=== PATIENT | male | born 1995 | race African-American/Black ===

== ENCOUNTER 2017-09-13 14:02 | Emergency (ER) | payer BC, MEDICAID, OTHER ==
[~2017-09-13] VITALS: Ht 175.3 cm; Wt 69.4 kg
[2017-09-13 14:11] VITALS: BP 113/67
== END 2017-09-13 14:27 | disposition home or self-care (01) ==
LOC: ER 14:03
DX: J06.9 Acute upper respiratory infection, unspecified (principal); F17.200 Nicotine dependence, unspecified, uncomplicated
CPT/HCPCS: A4606; Z7502; Z7610

== ENCOUNTER 2020-10-22 14:40 | Emergency (ER) | payer BC, OTHER ==
[~2020-10-22] VITALS: Ht 180.3 cm; Wt 74.4 kg
[2020-10-22 14:56] VITALS: BP 113/83
[2020-10-22] MEDS ORDERED: LIDOCAINE /MPF 1% VIAL 5 ML VIAL ONE (15:15)
[2020-10-22] MEDS ORDERED: LIDOCAINE /MPF 1% VIAL 5 ML VIAL IJ ONE (15:30)
--- NOTE | 2020-10-22 15:45 | NUR ---
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
[2020-10-22] MEDS ORDERED: IBUP-1955 PO (15:46)
[2020-10-22] MEDS ORDERED: AMOX-430 PO (15:46)
--- NOTE | 2020-10-22 15:50 | NUR ---
WOUND DRESSING DONE BY COMMUNICATIONS DEPARTMENT CHAIR.
--- NOTE | 2020-10-22 15:54 | NUR ---
Patient discharged to home in stable condition. Written and verbal after care instructions given. Patient verbalizes understanding of instruction.
== END 2020-10-22 15:55 | disposition home or self-care (01) ==
LOC: ER 14:45
DX: L03.011 Cellulitis of right finger (principal); F17.200 Nicotine dependence, unspecified, uncomplicated
CPT/HCPCS: 10060; 99283; A6403; J3490

== ENCOUNTER 2023-03-23 11:43 | Emergency (ER) | payer OTHER ==
[~2023-03-23] VITALS: Ht 180.3 cm; Wt 82.1 kg
[~2023-03-23 11:43] MED LIST: AMOX-430 PO; IBUP-1955 PO
[2023-03-23 12:22] VITALS: TEMP 98.7
[2023-03-23 13:19] LABS: BASOPHILS % (AUTO) 0.3 % (0.0-2.0); EOSINOPHILS # (AUTO) 0.1 K/uL (0.0-0.7); HEMATOCRIT 48 % (39-51); HEMOGLOBIN 16.3 g/dL (13.5-17.5); LYMPHOCYTES # (AUTO) 0.5 K/uL (0.8-4.8); LYMPHOCYTES % (AUTO) 4.7 % (20.0-44.0); MEAN CORPUSCULAR HEMOGLOBIN 32 PG (26.0-33.0); MEAN CORPUSCULAR HGB CONC 34 g/dl (31.0-36.0); MEAN CORPUSCULAR VOLUME 96 fL (80-96); MONOCYTES # (AUTO) 0.8 K/uL (0.1-1.30); NEUTROPHILS # (AUTO) 8.7 K/uL (1.8-8.9); PLATELET COUNT (AUTO) 188 K/uL (150-450); RED BLOOD CELL COUNT(AUTO) 5.03 MIL/uL (4.5-6.0); RED CELL DISTRIBUTION WIDTH 15.8 % (11.5-15.0); WHITE BLOOD COUNT (AUTO) 10.1 K/uL (4.3-11.0)
[2023-03-23] MEDS ORDERED: IOHEXOL-350 100 ML VIAL IV ONE (13:27)
[2023-03-23] MEDS ORDERED: IV NS 0.9% 250 ML IV ONE (13:27)
[2023-03-23 13:40] LABS: INR 1.03 (0.91-1.10); PARTIAL THROMBOPLASTIN TIME 26.6 SEC (24.3-34.3); PROTHROMBIN TIME 10.9 SECS (9.2-11.1)
[2023-03-23 13:50] LABS: CALCIUM, SERUM 9.9 mg/dL (8.5-10.1); CREATININE 0.9 mg/dL (0.6-1.3); POTASSIUM 3.6 mmol/L (3.5-5.1)
[2023-03-23 14:02] LABS: ALBUMIN 4.4 g/dL (3.4-5.0); BILIRUBIN,DIRECT 0.6 mg/dL (0.0-0.2); BILIRUBIN,TOTAL 1.6 mg/dL (0.2-1.0); TOTAL PROTEIN, SERUM 8.2 g/dL (6.4-8.2)
[2023-03-23] MEDS ORDERED: PANT40TA2 PO (15:36)
[2023-03-23 15:46] VITALS: BP 125/84; O2SAT 100
== END 2023-03-23 15:46 | disposition home or self-care (01) ==
LOC: ER 11:49
DX: S29.8XXA Other specified injuries of thorax, initial encounter (principal); K92.0 Hematemesis; F10.10 Alcohol abuse, uncomplicated; Z79.899 Other long term (current) drug therapy; Z88.0 Allergy status to penicillin; Y90.9 Presence of alcohol in blood, level not specified; W22.8XXA Striking against or struck by other objects, initial encounter; Y93.89 Activity, other specified; Y92.89 Other specified places as the place of occurrence of the external cause; Y99.8 Other external cause status
CPT/HCPCS: 99285; 74177; 71045; 85025; 80048; 83690; 80076; 36415; 85730; 86850; J7050; Q9967

== ENCOUNTER 2023-09-09 12:25 | Emergency (ER) | payer OTHER ==
[~2023-09-09] VITALS: Ht 180.3 cm; Wt 72.6 kg
[~2023-09-09 12:25] MED LIST changes: +PANT40TA2 PO
[2023-09-09 12:48] VITALS: BP 130/86; TEMP 98.2; O2SAT 97
[2023-09-09] MEDS ORDERED: ERYT3.5O9 EACHEYE (14:31)
== END 2023-09-09 14:53 | disposition home or self-care (01) ==
LOC: ER 12:31
DX: H10.89 Other conjunctivitis (principal); F17.200 Nicotine dependence, unspecified, uncomplicated; F10.10 Alcohol abuse, uncomplicated; Z88.0 Allergy status to penicillin; Y90.9 Presence of alcohol in blood, level not specified